=== PATIENT | female | born 2000 | race Caucasian/White ===

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

== ENCOUNTER 2020-01-26 18:44 | Emergency (ER) | payer MEDICAID ==
[~2020-01-26] VITALS: Ht 165.1 cm; Wt 107.0 kg
[2020-01-26 18:46] VITALS: BP 113/54
--- NOTE | 2020-01-26 18:55 | NUR ---
AMB TO RESTROOM TO PROVIDE URINE SAMPLE
--- NOTE | 2020-01-26 18:57 | NUR ---
PT AMB TO BED 04
--- NOTE | 2020-01-26 19:05 | NUR ---
Dr. Alston examining patient.
--- NOTE | 2020-01-26 19:08 | NUR ---
REPORT RECEIEVED FROM DANIKA SIDDIQUI FOR CONTINUITY OF CARE
[2020-01-26] MEDS ORDERED: KETOROLAC 60 MG/2 ML VIAL IM ONE (19:10)
--- NOTE | 2020-01-26 19:10 | NUR ---
19 Y/O F C/O N/V, LOWER ABDOMINAL PAIN X TODAY. 10/ PRESSURE LIKE PAIN. ABD SOFT, NON TENDER, BS ACTIVE. MED HX:DENIES NKA
--- NOTE | 2020-01-26 19:28 | NUR ---
Patient discharged with v/s stable. Written and verbal after care instructions given and explained. Patient alert, oriented and verbalized understanding of instructions. Ambulatory with steady gait. All questions addressed prior to discharge. ID band removed. Patient advised to follow up with PMD. Rx of TRAMADOL HYDROCHLORIDE AND MOTRIN given. Patient educated on indication of medication including possible reaction and side effects. Opportunity to ask questions provided and answered.
[2020-01-26 19:29] VITALS: BP 113/54
== END 2020-01-26 19:28 | disposition home or self-care (01) ==
LOC: MED 18:44
DX: N94.6 Dysmenorrhea, unspecified (principal); J45.909 Unspecified asthma, uncomplicated
CPT/HCPCS: 81002; 81025; 96372; 99283; J1885

== ENCOUNTER 2022-01-06 16:29 | Emergency (ER) | payer MEDICAID ==
[~2022-01-06] VITALS: Ht 165.1 cm; Wt 120.7 kg
[2022-01-06 16:41] VITALS: BP 132/75
[2022-01-06] MEDS ORDERED: ACETAMINOPHEN 325 MG TAB PO ONE (16:50)
--- NOTE | 2022-01-06 16:56 | NUR ---
Patient ambulated with steady gait to bed 1.
[2022-01-06] MEDS ORDERED: ACETAMINOPHEN EXTRA STRENGTH 500 MG TAB ONE (17:04)
--- NOTE | 2022-01-06 17:11 | NUR ---
SWABS HANDED TO LAB
--- NOTE | 2022-01-06 17:12 | NUR ---
21 Y/O FEMALE BIB SELF C/O OF SORE THROAT, NAUSEA, BODY MALAISE, AND NUNEZ. TEMP 101.2 IN TRIAGE. PT DENIES TAKING ANY MEDICATION. PER PT HER BOYFRIEND TESTED POSITIVE FOR COVID YESTERDAY NKA PMH: ASTHMA, ECZEMA, ANEMIA 28 WEEKS , G1
[2022-01-06] MEDS ORDERED: ACET-1195 PO (18:40)
[2022-01-06] MEDS ORDERED: DIPH-670 PO (18:40)
[2022-01-06] MEDS ORDERED: NIRM1TAB PO (18:45)
[2022-01-06 18:56] VITALS: BP 118/65
--- NOTE | 2022-01-06 18:56 | NUR ---
Patient discharged with v/s stable. Written and verbal after care instructions given and explained. Patient alert, oriented and verbalized understanding of instructions. Ambulatory with steady gait. All questions addressed prior to discharge. ID band removed. Patient advised to follow up with PMD. Rx of TYLENOL,BANADRYL, PAXLOVID given. Patient educated on indication of medication including possible reaction and side effects. Opportunity to ask questions provided and answered.
== END 2022-01-06 18:56 | disposition home or self-care (01) ==
LOC: MED 16:29
DX: O98.513 Other viral diseases complicating pregnancy, third trimester (principal); U07.1 COVID-19; Z3A.28 28 weeks gestation of pregnancy; J45.909 Unspecified asthma, uncomplicated
CPT/HCPCS: 81002; 81025; 99283